=== PATIENT | female | born 1970 | race Caucasian/White ===

== ENCOUNTER 2018-06-29 11:04 | Emergency (ER) | END 2018-06-29 13:00 | disposition home or self-care (01) ==

== ENCOUNTER 2019-02-08 11:34 | Inpatient (IN) | payer MEDICAID ==
[~2019-02-08] VITALS: Ht 160 cm; Wt 72.4 kg
--- NOTE | 2019-02-08 13:00 | ERD ---
ER Documentation Chief Complaint Chief Complaint vag bleed x 3 weeks HPI Patient is a 49-year-old female with past medical history of anemia presents to the ER for concerns of vaginal bleeding intermittently for the last 3 weeks. Yann spencer states that the bleeding comes and goes. Most recent episode started 3 days ago. Patient states she uses 3-5 pads per day. Patient denies any blood clot passage. Patient denies fevers, chills, nausea, vomiting, abdominal pain. Patient does report feeling weak. Patient states she has not taken her iron supplements for 2 weeks now given that she ran out of iron supplements. Patient does not have an VERTICA ARCHITECT. ROS All systems reviewed and are negative except as per history of present illness. Medications Home Meds No Active Prescriptions or Reported Meds Allergies Allergies: Coded Allergies: No Known Allergy (Unverified , 02/08/19) PMhx/Soc Medical and Surgical Hx: pt denies Medical Hx History of Surgery: Yes (C/S) Anesthesia Reaction: No Hx Alcohol Use: No Hx Substance Use: No Hx Tobacco Use: No Smoking Status: Never smoker FmHx Family History: No diabetes Physical Exam Vitals Vital Signs Date Temp Pulse Resp B/P (MAP) Pulse Ox O2 O2 Flow FiO2 Time Delivery Rate 02/08/19 98.1 92 18 118/57 100 11:38 (77) Physical Exam GENERAL: Well-developed, well-nourished female. Appears in no acute distress. Speaking in full sentences. HEAD: Normocephalic, atraumatic. EYES: Pupils are equally reactive bilaterally. EOMs grossly intact. No conjunctival erythema. ENT: Moist mucous membranes. No uvula deviation. No kissing tonsils. NECK: Supple. No meningismus. Normal range of motion of the neck. LUNG: Clear to auscultation bilaterally. No rhonchi, wheezing, rales or coarse breath sounds. HEART: Regular rate and rhythm. No murmurs, rubs or gallops. ABDOMEN: No scars, ecchymosis or rashes noted. Soft, nontender, and n ondistended. Positive bowel sounds in all four quadrants. No rebound tenderness, no guarding. (-) McBurney's point tenderness. No CVA tenderness. EXTREMITIES: Equal pulses bilaterally. No peripheral clubbing, cyanosis or edema. No unilateral leg swelling. NEUROLOGIC: Alert and oriented. Moving all four extremities without any difficulty. Normal speech. Steady gait. SKIN: Normal color. Warm and dry. No rashes or lesions. Result Diagram: 02/08/19 1228 02/08/19 1228 Results 24 hrs Laboratory Tests Test 02/08/19 12:28 White Blood Count 5.4 10^3/ul Red Blood Count 2.62 10^6/ul Hemoglobin 5.1 g/dl Hematocrit 19.0 % Mean Corpuscular Volume 72.5 fl Mean Corpuscular Hemoglobin 19.5 pg Mean Corpuscular Hemoglobin Concent 26.8 g/dl Red Cell Distribution Width 18.9 % Platelet Count 426 10^3/UL Mean Platelet Volume 9.6 fl Immature Granulocytes % 0.600 % Neutrophils % % Segmented Neutrophils % (Manual) 69 % Band Neutrophils % (Manual) 1 % Lymphocytes % % Lymphocytes % (Manual) 18 % Reactive Lymphocytes % (Manual) 2 % Monocytes % % Monocytes % (Manual) 7 % Eosinophils % % Eosinophils % (Manual) 1 % Basophils % % Metamyelocytes % (manual) 1 % Myelocytes % (Manual) 1 % Nucleated Red Blood Cells % 0.6 /100WBC Immature Granulocytes # 0.030 10^3/ul Neutrophils # 10^3/ul Neutrophils # (Manual) 3.7 10^3/ul Band Neutrophils # 0.0 10^3/ul Lymphocytes (Manual) 0.9 10^3/ul Lymphocytes # 10^3/ul Reactive Lymphocytes # 0.1 10^3/ul Monocytes # 10^3/ul Monocytes # (Manual) 0.3 10^3/ul Eosinophils # 10^3/ul Basophils # 10^3/ul Metamyelocytes # 0.0 10^3/ul Myelocytes # 0.0 10^3/ul Nucleated Red Blood Cells # 10^3/ul White Cell Morphology Comment @See below Platelet Estimate NORMAL Polychromasia 3+ Hypochromasia 3+ Poikilocytosis 1+ Anisocytosis 3+ Microcytosis 3+ Red Cell Morphology Comment @See below Urine Color YELLOW Urine Clarity CLOUDY Urine pH 8.0 Urine Specific [place] 1.016 Urine Ketones NEGATIVE mg/dL Urine Nitrite NEGATIVE mg/dL Urine Bilirubin NEGATIVE mg/dL Urine Urobilinogen 2+ mg/dL Urine Leukocyte Esterase NEGATIVE Matt/ul Urine Microscopic RBC 5 /HPF Urine Microscopic WBC 1 /HPF Urine Amorphous Crystals FEW /HPF Urine Bacteria FEW /HPF Urine Mucus MODERATE /HPF Urine Hemoglobin 2+ mg/dL Urine Glucose NEGATIVE mg/dL Urine Total Protein NEGATIVE mg/dl Sodium Level 142 mmol/L Potassium Level 4.4 mmol/L Chloride Level 107 mmol/L Carbon Dioxide Level 25 mmol/L Anion Gap 10 Blood Urea Nitrogen 8 mg/dl Creatinine 0.56 mg/dl Est Glomerular Filtrat Rate mL/min > 60 mL/min Glucose Level 116 mg/dl Calcium Level 9.0 mg/dl Total Bilirubin 0.5 mg/dl Direct Bilirubin 0.00 mg/dl Indirect Bilirubin 0.5 mg/dl Aspartate Amino Transf (AST/SGOT) 13 IU/L Alanine Aminotransferase (ALT/SGPT) 15 IU/L Alkaline Phosphatase 55 IU/L Total Protein 7.7 g/dl Albumin 4.3 g/dl Globulin 3.40 g/dl Albumin/Globulin Ratio 1.26 Beta HCG, Quantitative < 2.4 mIU/ml Procedures/MDM ED COURSE: The patient was stable throughout ED course. I kept the patient and/or family informed of laboratory and diagnostic imaging results throughout the ED course. DIAGNOSTIC IMAGING: Read by radiologist. Patient: DIAN JOSEPH : 1970 Age: 49 Sex: F MR #: [id number] DOS: 02/08/19 1220 Ordering MD: JERI TAPIA PA-C Location: E/R Room/Bed: PROCEDURE: US Pelvis. CLINICAL INDICATION: Vaginal bleeding TECHNIQUE: Multiple sonographic images of the pelvis were obtained utilizing transabdominal and endovaginal technique. The images were reviewed on a PACS workstation. COMPARISON: None. FINDINGS: The uterus is normal in size with a normal appearance of the myometrium. The uterus measures 10.2 x 4.5 x 6.0 cm. There are multiple Nabothian cysts in the cervix, the largest measures 2.1 cm, with internal debris. The endometrial stripe is heterogeneous in appearance and has the thickness of 18 mm. The right ovary was not seen. The left ovary measures 8.5 x 5.9 x 8.4 cm. There is Doppler flow noted in the left ovary. There is a large septated cyst in the left ovary measuring 7.3 x 5.0 cm. No free fluid is present within the pelvis. RPTAT: AA IMPRESSION: Enlarged left ovary with a large septated cyst measuring 7.3 cm. Further evaluation with surgical consultation or pelvic MRI is recommended. Slightly heterogeneous and thickened endometrium measuring 18 mm. .Franklin Henderson MD, MD Date Time Electronically viewed and signed by .Franklin Henderson MD, MD on 02/08/2019 13:26 .S/ CC: JERI TAPIA PA-C [id number] PROCEDURES: None. MEDICAL DECISION MAKING: This is a 49-year-old female with past medical history of anemia presents the ER for concerns of intermittent vaginal bleeding for the last 3 weeks. Patient does report associated weakness. Vital signs were reviewed. Patient was afebrile. Patient was hemodynamically stable. Patient's hemoglobin was noted to be 5.1, hematocrit of 19. CMP showed no severe electrolyte abnormalities, acidosis, alkalosis, renal injury or liver injury. B hCG was with less than 2.4. Pelvic ultrasound showed Enlarged left ovary with a large septated cyst measuring 7.3 cm. Further evaluation with surgical consultation or pelvic MRI is recommended. Slightly heterogeneous and thickened endometrium measuring 18 mm.. I discussed case with supervising physician Dr. Lo. Patient will be transferred to ED 1 for further management and work-up. Departure Diagnosis: Primary Impression: Vaginal bleeding Additional Impressions: Severe anemia Ovarian cyst Laterality: unspecified laterality Qualified Codes: N83.209 - Unspecified ovarian cyst, unspecified side Condition: Fair JERI TAPIA PA-C February 08, 2019 13:00
--- NOTE | 2019-02-08 13:24 | QN ---
Documentation Comment Chief complaint: Vaginal bleeding. The patient was initially seen by the [facility] HPI: The patient is a 49-year-old female, presenting with acute vaginal bleeding for the last 3 weeks complains of intermittent dizziness for the last 2 weeks, better with resting. Denies fever, chills, neck pain, chest pain, dyspnea, abdominal pain, vomiting, dizzy, diarrhea. She does not smoke nor drink Past medical history: Anemia Past surgical history: Const: No acute distress. Pale Head: Atraumatic. Eyes: Normal Conjunctiva. ENT: Normal External Ears, Nose and Mouth. Neck: Full range of motion. No meningismus. Resp: Clear to auscultation bilaterally. Cardio: Regular rate and rhythm. Abd: Soft, non distended, normal bowel sounds, non tender. Skin: No petechiae or rashes. Back: No midline or flank tenderness. Ext: No cyanosis, or edema. Neur: Awake and alert. No focal deficit Psych: Normal Mood and Affect. [place] [id number] Radiology Main Line: [phone] DIAGNOSTIC IMAGING REPORT Patient: DIAN JOSEPH : 1970 Age: 49 Sex: F MR #: [id number] DOS: 02/08/19 1220 Ordering MD: JERI TAPIA PA-C Location: E/R Room/Bed: AMENDMENT: 02/08/2019 3:34:17 PM Franklin Henderson M.d Verbal to Jeri ENGLE PROCEDURE: US Pelvis. CLINICAL INDICATION: Vaginal bleeding TECHNIQUE: Multiple sonographic images of the pelvis were obtained utilizing transabdominal and endovaginal technique. The images were reviewed on a PACS workstation. COMPARISON: None. FINDINGS: The uterus is normal in size with a normal appearance of the myometrium. The uterus measures 10.2 x 4.5 x 6.0 cm. There are multiple Nabothian cysts in the cervix, the largest measures 2.1 cm, with internal debris. The endometrial stripe is heterogeneous in appearance and has the thickness of 18 mm. The right ovary was not seen. The left ovary measures 8.5 x 5.9 x 8.4 cm. There is Doppler flow noted in the left ovary. There is a large septated cyst in the left ovary measuring 7.3 x 5.0 cm. No free fluid is present within the pelvis. RPTAT: AA IMPRESSION: Enlarged left ovary with a large septated cyst measuring 7.3 cm. Further evaluation with surgical consultation or pelvic MRI is recommended. Slightly heterogeneous and thickened endometrium measuring 18 mm. .Franklin Henderson MD, MD Date Time Electronically viewed and signed by .Franklin Henderson MD, on 02/08/2019 15:3 4 .S/ CC: JERI TAPIA PA-C [id number] MEDICAL MAKING DECISION: The patient is a 49-year-old female, presenting with acute symptomatic anemia due to acute metromenorrhagia, acute left ovarian cyst. She was treated with 3 unit of packed red blood cell for acute severe anemia The differential diagnoses considered include but are not limited to dysfunctional uterine bleeding, fibroid, uterine polyps, UTI Consultation: I discussed the patient with the on-call director game Dr Choudhary at 1:50p, who was made aware of the lab, the treatment and she accepted the patient Diagnostic impression: #1 acute symptomatic anemia #2 acute metromenorrhagia #3 acute left ovarian cyst Disposition: I discussed the findings with the patient. I discussed the patient with Dr Ray at 2:15p , who was made aware of the lab, the treatment, the patient condition. The patient is admitted to [facility] Disclaimer: Inadvertent spelling and grammatical errors are likely due to EHR /dictation software use and do not reflect on the overall quality of patient care. Also, please note that the electronic time recorded on this note does not necessarily reflect the actual time of the patient encounter. ARIEL SANTIAGO MD February 08, 2019 13:24
--- NOTE | 2019-02-08 13:59 | CONS ---
Assessment/Plan Assessment/Plan Assessment/Plan (Daily) 1. Abnormal uterine bleeding 2. Severe anemia Patient is currently receiving blood transfusion under the care of the hospitalist 3. Complex left ovarian cyst measuring 7 cm 4. Thickened endometrium Tumor markers were ordered today; Ca1 25 within normal limits After patient is hemodynamically stable; she should be considered for D&C and laparoscopic ovarian cystectomy with frozen section; possible laparotomy; possible salpingo-oophorectomy Consultation Date/Type/Reason Admit Date/Time Date of Consultation: February 08, 2019 Type of Consult Gynecology Reason for Consultation 1. Abnormal uterine bleeding 2. Severe anemia 3. Complex left ovarian cyst measuring 7 cm 4. Thickened endometrium Date/Time of Note DATE: 02/08/19 TIME: 13:58 Hx of Present Illness 49-year-old 4 para 4 presents with chief complaint of heavy vaginal bleeding for the last 3 weeks. She denies of passing any blood clots. She denies any pelvic pain Denies of any contraception use. Patient denies any history of fibroids Patient's past obstetrical history significant for x2 and x2 Constitutional: no complaints, improved Eyes: no complaints ENT: no complaints Respiratory: no complaints Cardiovascular: no complaints Gastrointestinal: no complaints Genitourinary: no complaints, other (Abnormal uterine bleeding) Musculoskeletal: no complaints Skin: no complaints Neurologic: no complaints Endocrine: no complaints Lymphatic: no complaints Psychological: no complaints, nl mood/affect Immunologic: no complaints Past Medical History Home Meds No Active Prescriptions or Reported Meds Allergies: Coded Allergies: No Known Allergy (Unverified , 02/08/19) Social History Smoking Status: Never smoker Exam/Review of Systems Exam Vitals Vital Signs Date Temp Pulse Resp B/P (MAP) Pulse Ox O2 O2 Flow FiO2 Time Delivery Rate 02/08/19 98.1 92 18 118/57 100 11:38 (77) Constitutional: alert, oriented, well developed Results Result Diagram: 02/08/19 1228 02/08/19 1228 Results 24hrs Laboratory Tests Test 02/08/19 12:28 White Blood Count 5.4 Red Blood Count 2.62 L Hemoglobin 5.1 *L Hematocrit 19.0 L Mean Corpuscular Volume 72.5 L Mean Corpuscular Hemoglobin 19.5 L Mean Corpuscular Hemoglobin Concent 26.8 L Red Cell Distribution Width 18.9 H Platelet Count 426 H Mean Platelet Volume 9.6 Immature Granulocytes % 0.600 H Neutrophils % Segmented Neutrophils % (Manual) 69 Band Neutrophils % (Manual) 1 Lymphocytes % Lymphocytes % (Manual) 18 Reactive Lymphocytes % (Manual) 2 H Monocytes % Monocytes % (Manual) 7 Eosinophils % Eosinophils % (Manual) 1 Basophils % Metamyelocytes % (manual) 1 H Myelocytes % (Manual) 1 H Nucleated Red Blood Cells % 0.6 H Immature Granulocytes # 0.030 Neutrophils # Neutrophils # (Manual) 3.7 Band Neutrophils # 0.0 Lymphocytes (Manual) 0.9 Lymphocytes # Reactive Lymphocytes # 0.1 H Monocytes # Monocytes # (Manual) 0.3 Eosinophils # Basophils # Metamyelocytes # 0.0 Myelocytes # 0.0 Nucleated Red Blood Cells # White Cell Morphology Comment @See below Platelet Estimate NORMAL Polychromasia 3+ Hypochromasia 3+ Poikilocytosis 1+ Anisocytosis 3+ Microcytosis 3+ Red Cell Morphology Comment @See below Urine Color YELLOW Urine Clarity CLOUDY A Urine pH 8.0 Urine Specific [place] 1.016 Urine Ketones NEGATIVE Urine Nitrite NEGATIVE Urine Bilirubin NEGATIVE Urine Urobilinogen 2+ H Urine Leukocyte Esterase NEGATIVE Urine Microscopic RBC 5 Urine Microscopic WBC 1 Urine Amorphous Crystals FEW A Urine Bacteria FEW A Urine Mucus MODERATE Urine Hemoglobin 2+ H Urine Glucose NEGATIVE Urine Total Protein NEGATIVE Sodium Level 142 Potassium Level 4.4 Chloride Level 107 Carbon Dioxide Level 25 Anion Gap 10 Blood Urea Nitrogen 8 Creatinine 0.56 Est Glomerular Filtrat Rate mL/min > 60 Glucose Level 116 Calcium Level 9.0 Total Bilirubin 0.5 Direct Bilirubin 0.00 Indirect Bilirubin 0.5 Aspartate Amino Transf (AST/SGOT) 13 L Alanine Aminotransferase (ALT/SGPT) 15 Alkaline Phosphatase 55 Total Protein 7.7 Albumin 4.3 Globulin 3.40 H Albumin/Globulin Ratio 1.26 Beta HCG, Quantitative < 2.4 Imaging Imaging PROCEDURE: US Pelvis. CLINICAL INDICATION: Vaginal bleeding TECHNIQUE: Multiple sonographic images of the pelvis were obtained utilizing transabdominal and endovaginal technique. The images were reviewed on a PACS workstation. COMPARISON: None. FINDINGS: The uterus is normal in size with a normal appearance of the myometrium. The uterus measures 10.2 x 4.5 x 6.0 cm. There are multiple Nabothian cysts in the cervix, the largest measures 2.1 cm, with internal debris. The endometrial stripe is heterogeneous in appearance and has the thickness of 18 mm. The right ovary was not seen. The left ovary measures 8.5 x 5.9 x 8.4 cm. There is Doppler flow noted in the left ovary. There is a large septated cyst in the left ovary measuring 7.3 x 5.0 cm. No free fluid is present within the pelvis. RPTAT: AA IMPRESSION: Enlarged left ovary with a large septated cyst measuring 7.3 cm. Further evaluation with surgical consultation or pelvic MRI is recommended. Slightly heterogeneous and thickened endometrium measuring 18 mm. .Franklin Henderson MD, MD Date Time Electronically viewed and signed by .Franklin Henderson MD, MD on 02/08/2019 13:26 .S/ CC: JERI TAPIA PA-C [id number] FRANCK CROFT MD February 08, 2019 13:59
[2019-02-08] MEDS ORDERED: ALBUTEROL/IPRATROPIUM (NEB) 3 ML AMP HHN PRN (15:00)
[2019-02-08] MEDS ORDERED: MAGNESIUM HYDROXIDE 30ML CUP PO PRN (15:00)
[2019-02-08] MEDS ORDERED: NACL 0.9% 3 ML SYG IV SCH (15:00)
[2019-02-08] MEDS ORDERED: hydrALAzine 20 MG INJ IV PRN (15:00)
[2019-02-08] MEDS ORDERED: NITROGLYCERIN (SL) 0.4 MG TAB SL PRN (15:00)
[2019-02-08] MEDS ORDERED: DOCUSATE SODIUM 100 MG CAP PO PRN (15:00)
[2019-02-08] MEDS ORDERED: morphine 2 MG INJ IV PRN (15:00)
[2019-02-08] MEDS ORDERED: LORAZEPAM 2 MG INJ IV PRN (15:00)
[2019-02-08] MEDS: ACETAMINOPHEN 325 MG TAB PO PRN (15:39)
[2019-02-08 16:06] VITALS: PULSE 94
--- NOTE | 2019-02-08 16:16 | HP ---
Date/Time of Note Date/Time of Note DATE: 02/08/19 TIME: 16:16 Assessment/Plan VTE Prophylaxis SCD applied (from Nsg): Yes Pharmacological prophylaxis: NA/contraindicated Pharm contraindication: bleeding Lines/Catheters IV Catheter Type (from Nrsg): Peripheral IV Assessment/Plan Hospital Course Assessment and plan: 49-year-old female prior history of anemia, presenting with abnormal uterine bleeding x3 weeks, with hemoglobin 5.1 and left ovarian cyst. #Abnormal uterine bleeding: Again hemoglobin 5.1 as well -Continue blood saturation, follow-up post transfusion CBC, continue IV fluids -Also will check TSH, A1c, lipid panel -Appreciate USER INTERFACE DESIGNER consult, follow the further recommendations regarding any further imaging studies and/or labs including tumor markers, and for possible endometrial biopsy/D and C #Left ovarian cyst: Found on imaging studies today -Monitor, per USER INTERFACE DESIGNER preliminary recommendations may consider laparoscopy in the next few days for further evaluation Result Diagram: 02/08/19 1228 02/08/19 1228 Results 24hrs Laboratory Tests Test 02/08/19 12:27 02/08/19 12:28 Carcinoembryonic Antigen 0.4 CA 125 Antigen 9.1 White Blood Count 5.4 Red Blood Count 2.62 L Hemoglobin 5.1 *L Hematocrit 19.0 L Mean Corpuscular Volume 72.5 L Mean Corpuscular Hemoglobin 19.5 L Mean Corpuscular Hemoglobin Concent 26.8 L Red Cell Distribution Width 18.9 H Platelet Count 426 H Mean Platelet Volume 9.6 Immature Granulocytes % 0.600 H Neutrophils % Segmented Neutrophils % (Manual) 69 Band Neutrophils % (Manual) 1 Lymphocytes % Lymphocytes % (Manual) 18 Reactive Lymphocytes % (Manual) 2 H Monocytes % Monocytes % (Manual) 7 Eosinophils % Eosinophils % (Manual) 1 Basophils % Metamyelocytes % (manual) 1 H Myelocytes % (Manual) 1 H Nucleated Red Blood Cells % 0.6 H Immature Granulocytes # 0.030 Neutrophils # Neutrophils # (Manual) 3.7 Band Neutrophils # 0.0 Lymphocytes (Manual) 0.9 Lymphocytes # Reactive Lymphocytes # 0.1 H Monocytes # Monocytes # (Manual) 0.3 Eosinophils # Basophils # Metamyelocytes # 0.0 Myelocytes # 0.0 Nucleated Red Blood Cells # White Cell Morphology Comment @See below Platelet Estimate NORMAL Polychromasia 3+ Hypochromasia 3+ Poikilocytosis 1+ Anisocytosis 3+ Microcytosis 3+ Red Cell Morphology Comment @See below Prothrombin Time 13.0 Prothrombin Time Ratio 1.0 INR International Normalized Ratio 0.97 Activated Partial Thromboplast Time 32.5 Urine Color YELLOW Urine Clarity CLOUDY A Urine pH 8.0 Urine Specific [place] 1.016 Urine Ketones NEGATIVE Urine Nitrite NEGATIVE Urine Bilirubin NEGATIVE Urine Urobilinogen 2+ H Urine Leukocyte Esterase NEGATIVE Urine Microscopic RBC 5 Urine Microscopic WBC 1 Urine Amorphous Crystals FEW A Urine Bacteria FEW A Urine Mucus MODERATE Urine Hemoglobin 2+ H Urine Glucose NEGATIVE Urine Total Protein NEGATIVE Sodium Level 142 Potassium Level 4.4 Chloride Level 107 Carbon Dioxide Level 25 Anion Gap 10 Blood Urea Nitrogen 8 Creatinine 0.56 Est Glomerular Filtrat Rate mL/min > 60 Glucose Level 116 Calcium Level 9.0 Total Bilirubin 0.5 Direct Bilirubin 0.00 Indirect Bilirubin 0.5 Aspartate Amino Transf (AST/SGOT) 13 L Alanine Aminotransferase (ALT/SGPT) 15 Alkaline Phosphatase 55 Total Protein 7.7 Albumin 4.3 Globulin 3.40 H Albumin/Globulin Ratio 1.26 Free Thyroxine 1.00 Beta HCG, Quantitative < 2.4 HPI/ROS Admit Date/Time Admit Date/Time Hx of Present Illness 49-year-old female with past medical history of anemia who presents to the ER for concerns of vaginal bleeding. Patient states this has been going on intermittently for the last 3 weeks. No apparent prior history of this. Patient states that the bleeding comes and goes, and states she uses 3-5 pads per day. Patient denies any blood clot passage. Also denies fevers, chills, nausea, vomiting, abdominal pain. Patient does report feeling weak. Patient states she has not taken her iron supplements for 2 weeks now given that she ran out of iron supplements. Patient does not have an USER INTERFACE DESIGNER. When she came in today she was found hemoglobin 5.1 and PRBC transfusion has been ordered for the patient which is presently being given now. Patient was also seen by the USER INTERFACE DESIGNER team because of the imaging studies also showing today a left ovarian cyst 7.3 centimeters, and they ordered some tumor markers which are still pending. PMH/Family/Social Past Medical History Medications Current Medications IV Flush (NS 3 ml) 3 ml PER PROTOCOL IV ; Start 02/08/19 at 15:00 Ondansetron HCl (Zofran Inj) 4 mg Q6H PRN IV NAUSEA/VOMITING; Start 02/08/19 at 15:00 Acetaminophen (Tylenol Tab) 650 mg Q6H PRN PO .PAIN 1-3 OR TEMP Last administered on 02/08/19at 15:39; Admin Dose 650 MG; Start 02/08/19 at 15:00 Acetaminophen/ Hydrocodone Bitart ([place] (5/325)) 1 tab Q6H PRN PO .MOD PAIN 4- 6; Start 02/08/19 at 15:00 Morphine Sulfate (morphine) 2 mg Q4H PRN IV .SEVERE PAIN 7-10; Start 02/08/19 at 15:00 Docusate Sodium (Colace) 100 mg Q12H PRN PO .CONSTIPATION; Start 02/08/19 at 15:00 Magnesium Hydroxide (Milk Of Mag) 30 ml DAILY PRN PO .CONSTIPATION; Start 02/08/19 at 15:00 Lorazepam (Ativan) 0.5 mg Q6H PRN IV ANXIETY; Start 02/08/19 at 15:00 Sodium Chloride 1,000 ml @ 100 mls/hr Q10H IV ; Start 02/08/19 at 14:56 Albuterol/ Ipratropium (Duoneb) 3 ml Q4H RESP THERAPY PRN HHN SHORTNESS OF BREATH; Start 02/08/19 at 15:00 Hydralazine HCl (Apresoline) 10 mg Q6H PRN IV ELEVATED BLOOD PRESSURE; Start 02/08/19 at 15:00 Nitroglycerin (Nitroglycerin (Sl Tab) 0.4 Mg) 1 tab Q5M PRN SL ANGINA; Start at 15:00 Coded Allergies: No Known Allergy (Unverified , 02/08/19) Past Surgical History Past Surgical Hx: other ( x2) Social History Alcohol Use: none Smoking Status: Never smoker Drug Use: none Exam/Review of Systems Vital Signs Vitals Vital Signs Date Temp Pulse Resp B/P (MAP) Pulse Ox O2 O2 Flow FiO2 Time Delivery Rate 02/08/19 94 16:06 02/08/19 99.1 15:39 02/08/19 17 101/54 100 Room Air 15:30 (70) Exam Exam Gen: Lying in bed, answering questions Head: Atraumatic Eyes: Normal Conjunctiva ENT: Normal External Ears, Nose and Mouth. Neck: Supple Resp: Clear to auscultation bilaterally Cardio: Regular rate and rhythm, no murmurs Abd: Soft, non tender, non distended. Normal bowel sounds Ext: No lower extremity edema bilaterally Neuro: No focal deficits FARIHA AGUIAR February 08, 2019 16:16
[2019-02-08 16:40] VITALS: Ht 160 cm; Wt 72.4 kg
[2019-02-08] MEDS: SOD CHLORIDE 0.9% 1,000 ML IV SCH ×2 (18:59→23:39)
[2019-02-08 19:48] VITALS: BP 104/51; PULSE 81; RESP 18
[2019-02-08 20:00] VITALS: PULSE 86
[2019-02-09] VITALS (19 sets, daily range): BP systolic 95–122; BP diastolic 44–67; PULSE 60–85; RESP 11–19
--- NOTE | 2019-02-09 10:40 | PREAC ---
Date/Time of Note Date/Time of Note DATE: 02/09/19 TIME: 10:37 Anesthesia Eval and Record Evaluation Time Pre-Procedure Interview DATE: 02/09/19 TIME: 10:37 Age 49 Sex female NPO: 8 hrs Preoperative diagnosis 3 weeks vaginal bleeding left ovarian cyst Planned procedure laparoscopy cystectomy, hysterescopy Past Medical History Past Medical History: Includes Heme: Anemia Surgery & Anesthesia Issues No known issue Meds Anticoagulation: No Beta Marko within 24 hr: No Reason Beta Marko not given: Pt. not on B-Marko No Active Prescriptions or Reported Meds Current Medications IV Flush (NS 3 ml) 3 ml PER PROTOCOL IV ; Start 02/08/19 at 15:00 Ondansetron HCl (Zofran Inj) 4 mg Q6H PRN IV NAUSEA/VOMITING; Start 02/08/19 at 15:00 Acetaminophen (Tylenol Tab) 650 mg Q6H PRN PO .PAIN 1-3 OR TEMP Last administered on 02/08/19at 15:39; Admin Dose 650 MG; Start 02/08/19 at 15:00 Acetaminophen/ Hydrocodone Bitart ([place] (5/325)) 1 tab Q6H PRN PO .MOD PAIN 4- 6; Start 02/08/19 at 15:00 Morphine Sulfate (morphine) 2 mg Q4H PRN IV .SEVERE PAIN 7-10; Start 02/08/19 at 15:00 Docusate Sodium (Colace) 100 mg Q12H PRN PO .CONSTIPATION; Start 02/08/19 at 15:00 Magnesium Hydroxide (Milk Of Mag) 30 ml DAILY PRN PO .CONSTIPATION; Start 02/08/19 at 15:00 Lorazepam (Ativan) 0.5 mg Q6H PRN IV ANXIETY; Start 02/08/19 at 15:00 Sodium Chloride 1,000 ml @ 100 mls/hr Q10H IV Last administered on 02/08/19at 23:39; Admin Dose 100 MLS/HR; Start 02/08/19 at 14:56 Albuterol/ Ipratropium (Duoneb) 3 ml Q4H RESP THERAPY PRN HHN SHORTNESS OF BREATH; Start 02/08/19 at 15:00 Hydralazine HCl (Apresoline) 10 mg Q6H PRN IV ELEVATED BLOOD PRESSURE; Start 02/08/19 at 15:00 Nitroglycerin (Nitroglycerin (Sl Tab) 0.4 Mg) 1 tab Q5M PRN SL ANGINA; Start 02/08/19 at 15:00 Meds reviewed: Yes Allergies Coded Allergies: No Known Allergy (Unverified , 02/08/19) Allergies Reviewed: Yes Labs/Studies Labs Reviewed: Reviewed by anesthesiologist Result Diagram: 02/09/19 0547 02/09/19 0547 Laboratory Tests 02/09/19 05:47 Blood Bank Test 02/08/19 13:21 Antibody Screen NEGATIVE Blood Product Summary Counts Blood Type O POSITIVE Crossmatch Red Blood Cells test: Negative Studies: ECG (n/a), CXR (n/a) Pre-procedure Exam Last vitals Vital Signs Date Temp Pulse Resp B/P (MAP) Pulse Ox O2 O2 Flow FiO2 Time Delivery Rate 02/09/19 79 08:00 02/09/19 99.0 17 107/57 99 07:21 (74) 02/08/19 Room Air 15:30 Airway: Adequate mouth opening Mallampati: Mallampati I Teeth: Normal Lung: Normal Heart: Normal ASA Physical Status ASA physical status: 1 Emergency: None Planned Anesthetic General/MAC: ETT Neuraxial: Spinal Nerve block: TAP (bilateral) Planned Pain Management Sub-arachniod narcotics, Single shot nerve block Pre-operative Attestations Prior to commencing anesthesia and surgery, the patient was re-evaluated, there was verification of: *The patient's identity *The results of appropriate recent lab work and preoperative vital signs *The above evaluation not changing prior to induction *Anesthetic plan, risk benefits, alternative and complications discussed with patient/family; questions answered; patient/family understands, accepts and wishes to proceed. NINA MARVIN MD February 09, 2019 10:40
[2019-02-09] MEDS ORDERED: CEFAZOLIN 1 GM INJ ONE (10:50)
[2019-02-09] MEDS ORDERED: KETOROLAC 30 MG INJ ONE (10:50)
[2019-02-09] MEDS ORDERED: PROPOFOL 20 ML ONE (10:50)
[2019-02-09] MEDS ORDERED: ONDANSETRON 4 MG INJ ONE (10:50)
[2019-02-09] MEDS ORDERED: METOCLOPRAMIDE 10 MG INJ ONE (10:50)
[2019-02-09] MEDS ORDERED: ROCURONIUM 50 MG INJ ONE (10:50)
[2019-02-09] MEDS ORDERED: MIDAZOLAM 1 MG/ML 2 ML INJ ONE (10:51)
[2019-02-09] MEDS ORDERED: morphine SULFATE/PF (10 MG/10 ML) INJ ONE (10:52)
[2019-02-09] MEDS: SOD CHLORIDE 0.9% 1,000 ML IV SCH ×2 (10:55→17:42)
[2019-02-09] MEDS ORDERED: MEPERIDINE 25 MG INJ IV PRN (11:00)
[2019-02-09] MEDS ORDERED: ONDANSETRON 4 MG INJ IV PRN (11:00)
[2019-02-09] MEDS ORDERED: DIPHENHYDRAMINE 50 MG INJ IV PRN (11:00)
[2019-02-09] MEDS ORDERED: FENTAnyl 50 MCG/ML VIAL IV PRN ×3 (11:00)
[2019-02-09] MEDS ORDERED: KETOROLAC 30 MG INJ IV PRN (11:00)
[2019-02-09] MEDS ORDERED: HYDROmorphONE 1 MG/5 ML IV SYRINGE IV PRN ×3 (11:00)
[2019-02-09] MEDS ORDERED: ROPIVACAINE 0.5 % 30 ML VIAL ONE (12:27)
[2019-02-09] MEDS ORDERED: NEOSTIGMINE 3 MG/3 ML SYRINGE ONE (12:41)
[2019-02-09] MEDS ORDERED: GLYCOPYRROLATE 0.4 MG INJ ONE (12:41)
--- NOTE | 2019-02-09 13:02 | OPPN ---
Date/Time of Note Date/Time of Note DATE: 02/09/19 TIME: 12:57 Operative Report Preoperative Diagnosis Severe Anemia Menorrhagia Thickened endometrium, Left ovarian cyst Postoperative Diagnosis same Operation/Procedure Performed D&C&suction and endometrial ablation Operative laparoscopy Left ovarian cystectomy Surgeon see signature line business office assistant OR Tech Anesthesia: general Estimated blood loss: minimal Transfusion Required none Specimen left ovarian cyst .EMT ECC Grafts/Implants none Complications none CODY MAN M.D. February 09, 2019 13:02
--- NOTE | 2019-02-09 13:04 | QN ---
Documentation Comment D&C&Hysteroscopy and Endometrial Ablation and Operative laparoscopy and left ovarian cystectomy She is cleared from Casting Operator Helper team and needs a follow up postop appointment with her Casting Operator Helper CODY MAN M.D. February 09, 2019 13:04
[2019-02-09] MEDS ORDERED: OXYCODONE/ACETAMINOPHEN (5/325) TAB PO PRN (13:30)
--- NOTE | 2019-02-09 13:44 | PN ---
Date/Time of Note Date/Time of Note DATE: 02/09/19 TIME: 13:41 Assessment/Plan VTE Prophylaxis Risk score (from Ns)>0 risk: 3 SCD applied (from Ns): Yes Pharmacological prophylaxis: NA/contraindicated Pharm contraindication: bleeding Lines/Catheters IV Catheter Type (from Nrs): Peripheral IV Urinary Cath still in place: No Assessment/Plan Hospital Course S: Patient off the floor now undergoing RADIUS CORNER MACHINE OPERATOR procedure, likely D+ C and possible ovarian cystectomy. Patient received 3 units PRBC transfusion since yesterday, no acute events overnight. O: VS - see below PE: -Unable to be performed presently as patient is off the floor now at surgical procedure Assessment and plan: 49-year-old female prior history of anemia, presenting with abnormal uterine bleeding x3 weeks, with hemoglobin 5.1 and left ovarian cyst. #Abnormal uterine bleeding: Again hemoglobin 5.1 on admission, after blood transfusion given yesterday, now up to 9.4 today. Scant vaginal bleeding overnight. Again seen by RADIUS CORNER MACHINE OPERATOR team and presently undergoing likely D&C procedure along with ovarian cystectomy today. -Follow-up postop recommendations, continue IV fluids -Follow-up final results of TSH, A1c, lipid panel #Left ovarian cyst: Found on imaging studies on admission -Monitor, again per RADIUS CORNER MACHINE OPERATOR preliminary recommendations patient at surgical procedure now for further investigation/treatment Result Diagram: 02/09/19 0547 02/09/19 0547 Results 24hrs Laboratory Tests Test 02/09/19 05:47 White Blood Count 6.5 # Red Blood Count 4.00 #L Hemoglobin 9.4 #L Hematocrit 31.0 #L Mean Corpuscular Volume 77.5 L Mean Corpuscular Hemoglobin 23.5 #L Mean Corpuscular Hemoglobin Concent 30.3 L Red Cell Distribution Width 19.2 H Platelet Count 425 H Mean Platelet Volume 10.0 Immature Granulocytes % 0.500 H Neutrophils % 61.2 Lymphocytes % 28.9 Monocytes % 7.2 Eosinophils % 1.1 Basophils % 1.1 Nucleated Red Blood Cells % 0.5 H Immature Granulocytes # 0.030 Neutrophils # 4.0 Lymphocytes # 1.9 Monocytes # 0.5 Eosinophils # 0.1 Basophils # 0.1 Nucleated Red Blood Cells # 0.0 Sodium Level 140 Potassium Level 3.8 Chloride Level 109 Carbon Dioxide Level 22 Anion Gap 9 Blood Urea Nitrogen 8 Creatinine 0.62 Est Glomerular Filtrat Rate mL/min > 60 Glucose Level 96 Hemoglobin A1c 5.3 Calcium Level 8.8 Phosphorus Level 3.5 Magnesium Level 2.3 Triglycerides Level 91 Cholesterol Level 168 LDL Cholesterol, Calculated 88 HDL Cholesterol 62 Cholesterol/HDL Ratio 2.7 Thyroid Stimulating Hormone (TSH) 3.700 Exam/Review of Systems Exam Vitals Vital Signs Date Temp Pulse Resp B/P (MAP) Pulse Ox O2 O2 Flow FiO2 Time Delivery Rate 02/09/19 98.1 13:08 02/09/19 80 14 106/51 100 Mask 8.0 13:04 (69) Intake and Output 02/08/19 02/08/19 02/09/19 1515:00 23:00 07:00 IntakeIntake Total 350 ml 1150 ml BalanceBalance 350 ml 1150 ml Results Results 24hrs Laboratory Tests Test 02/09/19 05:47 White Blood Count 6.5 # Red Blood Count 4.00 #L Hemoglobin 9.4 #L Hematocrit 31.0 #L Mean Corpuscular Volume 77.5 L Mean Corpuscular Hemoglobin 23.5 #L Mean Corpuscular Hemoglobin Concent 30.3 L Red Cell Distribution Width 19.2 H Platelet Count 425 H Mean Platelet Volume 10.0 Immature Granulocytes % 0.500 H Neutrophils % 61.2 Lymphocytes % 28.9 Monocytes % 7.2 Eosinophils % 1.1 Basophils % 1.1 Nucleated Red Blood Cells % 0.5 H Immature Granulocytes # 0.030 Neutrophils # 4.0 Lymphocytes # 1.9 Monocytes # 0.5 Eosinophils # 0.1 Basophils # 0.1 Nucleated Red Blood Cells # 0.0 Sodium Level 140 Potassium Level 3.8 Chloride Level 109 Carbon Dioxide Level 22 Anion Gap 9 Blood Urea Nitrogen 8 Creatinine 0.62 Est Glomerular Filtrat Rate mL/min > 60 Glucose Level 96 Hemoglobin A1c 5.3 Calcium Level 8.8 Phosphorus Level 3.5 Magnesium Level 2.3 Triglycerides Level 91 Cholesterol Level 168 LDL Cholesterol, Calculated 88 HDL Cholesterol 62 Cholesterol/HDL Ratio 2.7 Thyroid Stimulating Hormone (TSH) 3.700 Medications Medication Current Medications IV Flush (NS 3 ml) 3 ml PER PROTOCOL IV ; Start 02/08/19 at 15:00 Ondansetron HCl (Zofran Inj) 4 mg Q6H PRN IV NAUSEA/VOMITING; Start 02/08/19 at 15:00 Acetaminophen (Tylenol Tab) 650 mg Q6H PRN PO .PAIN 1-3 OR TEMP Last administered on 02/08/19at 15:39; Admin Dose 650 MG; Start 02/08/19 at 15:00 Acetaminophen/ Hydrocodone Bitart ([place] (5/325)) 1 tab Q6H PRN PO .MOD PAIN 4- 6; Start 02/08/19 at 15:00 Morphine Sulfate (morphine) 2 mg Q4H PRN IV .SEVERE PAIN 7-10; Start 02/08/19 at 15:00 Docusate Sodium (Colace) 100 mg Q12H PRN PO .CONSTIPATION; Start 02/08/19 at 15:00 Magnesium Hydroxide (Milk Of Mag) 30 ml DAILY PRN PO .CONSTIPATION; Start 02/08/19 at 15:00 Lorazepam (Ativan) 0.5 mg Q6H PRN IV ANXIETY; Start 02/08/19 at 15:00 Sodium Chloride 1,000 ml @ 100 mls/hr Q10H IV Last administered on 02/08/19at 23:39; Admin Dose 100 MLS/HR; Start 02/08/19 at 14:56 Albuterol/ Ipratropium (Duoneb) 3 ml Q4H RESP THERAPY PRN HHN SHORTNESS OF BREATH; Start 02/08/19 at 15:00 Hydralazine HCl (Apresoline) 10 mg Q6H PRN IV ELEVATED BLOOD PRESSURE; Start 02/08/19 at 15:00 Nitroglycerin (Nitroglycerin (Sl Tab) 0.4 Mg) 1 tab Q5M PRN SL ANGINA; Start 02/08/19 at 15:00 Hydromorphone HCl (Dilaudid) 0.2 mg PACU PRN IV MILD PAIN 1-3; Start 02/09/19 at 11:00; Stop 02/09/19 at 17:00 Hydromorphone HCl (Dilaudid) 0.4 mg PACU PRN IV MOD PAIN 4-6 Last administered on 02/09/19at 13:33; Admin Dose 0.4 MG; Start 02/09/19 at 11:00; Stop 02/09/19 at 17:00 Hydromorphone HCl (Dilaudid) 0.6 mg PACU PRN IV SEVERE PAIN 7-10 Last administered on 02/09/19at 13:18; Admin Dose 0.6 MG; Start 02/09/19 at 11:00; Stop 02/09/19 at 17:00 Fentanyl (Sublimaze) 25 mcg PACU ORDER PRN IV MILD PAIN 1-3; Start 02/09/19 at 11:00; Stop 02/09/19 at 17:00 Fentanyl (Sublimaze) 50 mcg PACU ORDER PRN IV MOD PAIN 4-6; Start 02/09/19 at 11:00; Stop 02/09/19 at 17:00 Fentanyl (Sublimaze) 75 mcg PACU ORDER PRN IV SEVERE PAIN 7-10; Start 02/09/19 at 11:00; Stop 02/09/19 at 17:00 Ketorolac Tromethamine (Toradol) 30 mg PACU ORDER PRN IV FOR PAIN AFTER IV NARCOTIC MED; Start 02/09/19 at 11:00; Stop 02/09/19 at 17:00 Ondansetron HCl (Zofran Inj) 4 mg PACU ORDER PRN IV NAUSEA/VOMITING Last administered on 02/09/19at 13:18; Admin Dose 4 MG; Start 02/09/19 at 11:00; Stop 02/09/19 at 17:00 Meperidine HCl (Demerol) 25 mg PACU ORDER PRN IV .RIGORS; Start 02/09/19 at 11:00; Stop 02/09/19 at 17:00 Diphenhydramine HCl (Benadryl) 25 mg PACU ORDER PRN IV .PRURITUS; Start 02/09/19 at 11:00; Stop 02/09/19 at 17:00 Oxycodone/ Acetaminophen (Percocet (5/ 325)) 2 tab Q4H PRN PO MODERATE PAIN LEVEL 4-6; Start 02/09/19 at 13:30 FARIHA AGUIAR February 09, 2019 13:44
--- NOTE | 2019-02-09 15:00 | OPR ---
DATE OF OPERATION: 02/09/2019 PREOPERATIVE DIAGNOSES: 1. Severe anemia. 2. Menorrhagia. 3. Left ovarian cyst. POSTOPERATIVE DIAGNOSES: 1. Severe anemia. 2. Menorrhagia. 3. Left ovarian cyst. PROCEDURES: Dilation and curettage, hysteroscopy, endometrial ablation, operative laparoscopy, left ovarian cystectomy. ATTENDING SURGEON: Aleksandar Price MD ANESTHESIOLOGIST: Deyanira Oconnell MD TYPE OF ANESTHESIA: General. COMPLICATIONS: None. TECHNIQUE: The patient was taken to the operating room where general anesthesia was found to be adeq uate. The patient was placed in dorsal lithotomy position after prep and drape. Weighted speculum w as placed inside the vaginal vault. Anterior lip of the cervix was grasped by single-tooth tenaculum . Endocervical curet was done. Tissue was sent for frozen. Pathologist read the specimen as benign . The hydrothermal Hi-Midia endometrial ablation device was inserted. The endometrial lini ng was ablated. The procedure was done successfully. Then instruments were removed and HUMI was ins erted inside the uterine cavity and fixed in place. Then, attention was turned to abdominal field. Then, 1 cm incision was made above the umbilicus. First trocar was inserted under direct visualizati on of the camera. Intraabdominal cavity was filled up using 4 liters of CO2. A large 6 x 7 cm left ovarian simple cyst was noticed. Ovarian cyst was enucleated and accidentally, it was ruptured. Dylon ar fluid was instilled into the abdominal field that was suctioned. Ovarian cystectomy was completed . Specimen was removed with Endobag. Copious irrigation of abdominal and pelvic cavity was done. S econd trocar that was 12 cm trocar was removed under direct visualization of the camera. Gas was rem issa. Fascia was closed with 2-0 Vicryl sutures. Skin was closed using 2-0 sutures. The trocars we re removed under direct visualization of the camera. Right side incision umbilical incision was clos ed using 3-0 Monocryl sutures. Dermabond was placed on top of all 3 incisions. HUMI was removed. H emostasis was achieved. The patient tolerated the procedure well and was transferred to [facility] in stable condition. There was no complication regarding this surgery. Dictated By: ALEKSANDAR DOBSON/NTS Conf#: [id number] [facility]#: [id number] CC: ELSI KIRKPATRICK MD; AFRIHA AGUIAR; FRANCK CROFT MD;*EndCC*
--- NOTE | 2019-02-09 15:07 | PREOPHP ---
DATE OF ADMISSION: 02/08/2019 HISTORY OF PRESENT ILLNESS: This is a 49-year-old 4, para 4, admitted to the emergency room with chief complaint of heavy vaginal bleeding, menorrhagia, ____ was noted by the ultrasound. PAST MEDICAL HISTORY: Denies. PAST SURGICAL HISTORY: Two previous C-sections. ALLERGIES: NKDA. PHYSICAL EXAMINATION: VITAL SIGNS: Stable. GENERAL: Normal. ABDOMEN: Not tender, not distended. GENITAL: She had ____ in the vaginal vault. ASSESSMENT AND PLAN: A 49-year-old 4, para 4 with menorrhagia, thickened endometrium and lef t ovarian cyst, was consented for D and C and hysteroscopy, endometrial ablation, operative laparosco py, left ovarian cystectomy, possible oophorectomy, possible laparotomy. Risks and benefits were dis cussed with the patient. Consent was signed and the patient was taken to the operating room. Dictated By: CODY MAN MD RG/NTS Conf#: [id number] DID#: [id number] CC: ELSI KIRKPATRICK MD; FARIHA AGUIAR; FRANCK CROFT MD;*EndCC*
[2019-02-09] MEDS: ACETAMINOPHEN 325 MG TAB PO PRN (22:40)
[2019-02-10 01:55] VITALS: BP 100/50; PULSE 70; RESP 18
[2019-02-10] MEDS: SOD CHLORIDE 0.9% 1,000 ML IV SCH (03:56)
[2019-02-10 07:32] VITALS: BP 106/51; PULSE 63; RESP 16
--- NOTE | 2019-02-10 08:05 | PAC ---
Date/Time of Note Date/Time of Note DATE: 02/10/19 TIME: 08:05 Post-Anesthesia Notes Post-Anesthesia Note Last documented vital signs Vital Signs Date Temp Pulse Resp B/P (MAP) Pulse Ox O2 O2 Flow FiO2 Time Delivery Rate 02/10/19 99.2 63 16 106/51 100 Room Air 07:32 (69) 02/09/19 8.0 13:18 Activity: WNL Respiratory function: WNL Cardiovascular function: WNL Mental status: Baseline Pain reasonably controlled: Yes Hydration appropriate: Yes Nausea/Vomiting absent: No NINA MARVIN MD February 10, 2019 08:05
--- NOTE | 2019-02-10 08:07 | OPPN ---
Date/Time of Note Date/Time of Note DATE: 02/10/19 TIME: 08:05 Anesthesia Follow up Anesthesia Follow up Last documented vital signs Vital Signs Date Temp Pulse Resp B/P (MAP) Pulse Ox O2 O2 Flow FiO2 Time Delivery Rate 02/10/19 99.2 63 16 106/51 100 Room Air 07:32 (69) 02/09/19 8.0 13:18 Respiratory function: WNL Cardiovascular function: WNL Comments A 49 year female s/p GA , spinal with duramorph for post op pain POD #1 is doing fine. No pain, itching, headache, N/V, neural deficit. care per surgery team NINA MARVIN MD February 10, 2019 08:07
[2019-02-10] MEDS: ONDANSETRON 4 MG INJ IV PRN (11:42)
[2019-02-10] MEDS: ACETAMINOPHEN 325 MG TAB PO PRN (11:51)
--- NOTE | 2019-02-10 12:20 | PN ---
Date/Time of Note Date/Time of Note DATE: 02/10/19 TIME: 12:17 Assessment/Plan VTE Prophylaxis Risk score (from Nsg)>0 risk: 1 SCD applied (from Nsg): Yes Pharmacological prophylaxis: NA/contraindicated Pharm contraindication: bleeding Lines/Catheters IV Catheter Type (from Nrsg): Peripheral IV Urinary Cath still in place: No Assessment/Plan Hospital Course S: Patient patient had the D+ C and ovarian cystectomy. Performed yesterday. Has very minimal and scant vaginal bleeding. Seen by DIRECTOR OF USER EXPERIENCE team earlier today. Still having some pain complaints. O: VS - see below PE: Gen: Sitting in chair, answering questions Head: Atraumatic Eyes: Normal Conjunctiva ENT: Normal External Ears, Nose and Mouth. Neck: Supple Resp: Clear to auscultation bilaterally Cardio: Regular rate and rhythm, no murmurs Abd: Soft, non tender, non distended. Normal bowel sounds Ext: No lower extremity edema bilaterally Neuro: No focal deficits DATE OF OPERATION: 02/09/2019 PREOPERATIVE DIAGNOSES: 1. Severe anemia. 2. Menorrhagia. 3. Left ovarian cyst. POSTOPERATIVE DIAGNOSES: 1. Severe anemia. 2. Menorrhagia. 3. Left ovarian cyst. PROCEDURES: Dilation and curettage, hysteroscopy, endometrial ablation, operative laparoscopy, left ovarian cystectomy. Assessment and plan: 49-year-old female prior history of anemia, presenting with abnormal uterine bleeding x3 weeks, with hemoglobin 5.1 and left ovarian cyst. #Abnormal uterine bleeding: Again hemoglobin 5.1 on admission, received 3 units PRBC transfusion 2 days ago. Status post D&C procedure along with ovarian cystectomy postop day #1. -Continue pain control medications, follow-up postop recommendations from DIRECTOR OF USER EXPERIENCE team -Monitor CBC daily -given the fact that the hemoglobin is 7.7 today, will recheck H&H to make sure this is not lab error. #Left ovarian cyst: Found on imaging studies on admission -again status post ovarian cystectomy yesterday postop day #1 -Monitor, follow-up DIRECTOR OF USER EXPERIENCE recommendations. Result Diagram: 02/10/1930 02/10/19 0530 Results 24hrs Laboratory Tests Test 02/10/19 05:30 02/10/19 06:55 White Blood Count 6.8 Red Blood Count 3.28 L Hemoglobin 7.7 L Hematocrit 25.7 L Mean Corpuscular Volume 78.4 L Mean Corpuscular Hemoglobin 23.5 L Mean Corpuscular Hemoglobin Concent 30.0 L Red Cell Distribution Width 20.2 H Platelet Count 352 Mean Platelet Volume 9.6 Immature Granulocytes % 0.300 Neutrophils % 65.9 Lymphocytes % 22.4 Monocytes % 8.8 Eosinophils % 1.9 Basophils % 0.7 Nucleated Red Blood Cells % 0.3 H Immature Granulocytes # 0.020 Neutrophils # 4.5 Lymphocytes # 1.5 Monocytes # 0.6 Eosinophils # 0.1 Basophils # 0.1 Nucleated Red Blood Cells # 0.0 Sodium Level 141 Potassium Level 3.9 Chloride Level 112 H Carbon Dioxide Level 24 Anion Gap 5 Blood Urea Nitrogen 8 Creatinine 0.65 Est Glomerular Filtrat Rate mL/min > 60 Glucose Level 96 Calcium Level 8.3 L Lab Scanned Report BLOOD TRANSFUSION Exam/Review of Systems Exam Vitals Vital Signs Date Temp Pulse Resp B/P (MAP) Pulse Ox O2 O2 Flow FiO2 Time Delivery Rate 02/10/19 99.2 63 16 106/51 100 Room Air 07:32 (69) 02/09/19 8.0 13:18 Intake and Output 02/09/19 02/09/19 02/10/19 1515:00 23:00 07:00 IntakeIntake Total 2000 ml 420 ml 1077 ml OutputOutput Total 205 ml BalanceBalance 1795 ml 420 ml 1077 ml Results Results 24hrs Laboratory Tests Test 02/10/19 05:30 02/10/19 06:55 White Blood Count 6.8 Red Blood Count 3.28 L Hemoglobin 7.7 L Hematocrit 25.7 L Mean Corpuscular Volume 78.4 L Mean Corpuscular Hemoglobin 23.5 L Mean Corpuscular Hemoglobin Concent 30.0 L Red Cell Distribution Width 20.2 H Platelet Count 352 Mean Platelet Volume 9.6 Immature Granulocytes % 0.300 Neutrophils % 65.9 Lymphocytes % 22.4 Monocytes % 8.8 Eosinophils % 1.9 Basophils % 0.7 Nucleated Red Blood Cells % 0.3 H Immature Granulocytes # 0.020 Neutrophils # 4.5 Lymphocytes # 1.5 Monocytes # 0.6 Eosinophils # 0.1 Basophils # 0.1 Nucleated Red Blood Cells # 0.0 Sodium Level 141 Potassium Level 3.9 Chloride Level 112 H Carbon Dioxide Level 24 Anion Gap 5 Blood Urea Nitrogen 8 Creatinine 0.65 Est Glomerular Filtrat Rate mL/min > 60 Glucose Level 96 Calcium Level 8.3 L Lab Scanned Report BLOOD TRANSFUSION Medications Medication Current Medications IV Flush (NS 3 ml) 3 ml PER PROTOCOL IV ; Start 02/08/19 at 15:00 Ondansetron HCl (Zofran Inj) 4 mg Q6H PRN IV NAUSEA/VOMITING Last administered on 02/10/19at 11:42; Admin Dose 4 MG; Start 02/08/19 at 15:00 Acetaminophen (Tylenol Tab) 650 mg Q6H PRN PO .PAIN 1-3 OR TEMP Last administered on 02/10/19at 11:51; Admin Dose 650 MG; Start 02/08/19 at 15:00 Acetaminophen/ Hydrocodone Bitart ([place] (5/325)) 1 tab Q6H PRN PO .MOD PAIN 4- 6; Start 02/08/19 at 15:00 Morphine Sulfate (morphine) 2 mg Q4H PRN IV .SEVERE PAIN 7-10; Start 02/08/19 at 15:00 Docusate Sodium (Colace) 100 mg Q12H PRN PO .CONSTIPATION; Start 02/08/19 at 15:00 Magnesium Hydroxide (Milk Of Mag) 30 ml DAILY PRN PO .CONSTIPATION; Start 02/08/19 at 15:00 Lorazepam (Ativan) 0.5 mg Q6H PRN IV ANXIETY; Start 02/08/19 at 15:00 Albuterol/ Ipratropium (Duoneb) 3 ml Q4H RESP THERAPY PRN HHN SHORTNESS OF BREATH; Start 02/08/19 at 15:00 Hydralazine HCl (Apresoline) 10 mg Q6H PRN IV ELEVATED BLOOD PRESSURE; Start 02/08/19 at 15:00 Nitroglycerin (Nitroglycerin (Sl Tab) 0.4 Mg) 1 tab Q5M PRN SL ANGINA; Start 02/08/19 at 15:00 Oxycodone/ Acetaminophen (Percocet (5/ 325)) 2 tab Q4H PRN PO MODERATE PAIN LEVEL 4-6; Start 02/09/19 at 13:30 FARIHA AGUIAR February 10, 2019 12:20
[2019-02-10] MEDS: HYDROCODONE/APAP (5/325) TAB PO PRN (12:24)
[2019-02-10 14:26] VITALS: BP 115/57; PULSE 65; RESP 16
[2019-02-10 20:05] VITALS: BP 113/56; PULSE 70; RESP 18
[2019-02-11] MEDS: ACETAMINOPHEN 325 MG TAB PO PRN ×2 (01:27→14:21)
[2019-02-11 02:00] VITALS: BP 103/56; PULSE 66; RESP 18
[2019-02-11 07:37] VITALS: BP 108/52; PULSE 65; RESP 15
[2019-02-11] MEDS: HYDROCODONE/APAP (5/325) TAB PO PRN (09:32)
[2019-02-11] MEDS: ONDANSETRON 4 MG INJ IV PRN (13:19)
--- NOTE | 2019-02-11 14:03 | PDOCDIS ---
Discharge Instructions CONDITION [id number] Patient Condition: [id number] Stable HOME CARE INSTRUCTIONS: [id number] Diet Instructions: [id number] Low Fat /Cholesterol ACTIVITY: [id number] Activity Restrictions: [id number] Slowly Increase Activity Rest between Activity Avoid heavy lifting FOLLOW UP/APPOINTMENTS Follow-up Plan Please take your medications as prescribed, see your doctor in clinic in the next 1 week. FARIHA AGUIAR February 11, 2019 14:03
[2019-02-11] MEDS ORDERED: HYDR-3601 PO (14:06)
[2019-02-11] MEDS ORDERED: ONDA4TAB13 PO (14:06)
[2019-02-11 14:14] VITALS: BP 108/50; PULSE 67; RESP 16
--- NOTE | 2019-02-11 14:17 | DS ---
Date/Time of Note Date/Time of Note DATE: 02/11/19 TIME: 14:14 Discharge Summary Admission/Discharge Info Admit Date/Time February 08, 2019 at 14:17 Discharge Date/Time Discharge Diagnosis #Abnormal uterine bleeding: Again hemoglobin 5.1 on admission, improved after PRBC transfusion given during this admission. Status post D&C procedure along with ovarian cystectomy this admission as well. #Left ovarian cyst: Found on imaging studies on admission -again status post ovarian cystectomy this admission Patient Condition: Stable Procedures DATE OF OPERATION: 02/09/2019 PREOPERATIVE DIAGNOSES: 1. Severe anemia. 2. Menorrhagia. 3. Left ovarian cyst. POSTOPERATIVE DIAGNOSES: 1. Severe anemia. 2. Menorrhagia. 3. Left ovarian cyst. PROCEDURES: Dilation and curettage, hysteroscopy, endometrial ablation, operative laparoscopy, left ovarian cystectomy. Hx of Present Illness 49-year-old female with past medical history of anemia who presents to the ER for concerns of vaginal bleeding. Patient states this has been going on intermittently for the last 3 weeks. No apparent prior history of this. Patient states that the bleeding comes and goes, and states she uses 3-5 pads per day. Patient denies any blood clot passage. Also denies fevers, chills, nausea, vomiting, abdominal pain. Patient does report feeling weak. Patient states she has not taken her iron supplements for 2 weeks now given that she ran out of iron supplements. Patient does not have an TANK ERECTOR. When she came in today she was found hemoglobin 5.1 and PRBC transfusion has been ordered for the patient which is presently being given now. Patient was also seen by the TANK ERECTOR team because of the imaging studies also showing today a left ovarian cyst 7.3 centimeters, and they ordered some tumor markers which are still pending. Hospital Course Patient was admitted and received blood transfusion. Hemoglobin remained stable afterwards. She was monitored for any further vaginal bleeding which was minimal and scant afterwards. She was evaluated by the TANK ERECTOR team and again as mentioned above underwent: dilation and curettage, hysteroscopy, endometrial ablation, operative laparoscopy, left ovarian cystectomy. Patient tolerated the procedure well. She was given pain control medications and antinausea medications as well. Her labs remained stable. She was able to ambulate tolerated p.o. diet. If we get clearance from the TANK ERECTOR team today she will be discharged home today in improved condition. See below for full list of discharge medications. Home Meds Active Scripts Ondansetron Hcl* (Zofran*) 4 Mg Tab, 4 MG PO Q4H PRN for NAUSEA AND OR VOMITING, #20 TAB Prov:FARIHA AGUIAR S. 02/11/19 Hydrocodone Bit-Acetaminophen (Hydrocodone Bit-APAP) 5-325MG Tablet, 1 TAB PO Q6H PRN for .MOD PAIN 4-6, #20 TAB Prov:FARIHA AGUIAR S. 02/11/19 Follow-up Plan Please take your medications as prescribed, see your doctor in clinic in the next 1 week. Primary Care Provider Care Physician No Primary Time spent on discharge: > 30 minutes Pending Labs Laboratory Tests Test 02/11/19 06:50 White Blood Count 5.8 10^3/ul (4.8-10.8) Red Blood Count 3.66 10^6/ul (4.20-5.40) Hemoglobin 8.6 g/dl (12.0-16.0) Hematocrit 28.6 % (37.0-47.0) Mean Corpuscular Volume 78.1 fl (82.0-101.0) Mean Corpuscular Hemoglobin 23.5 pg (29.0-33.0) Mean Corpuscular Hemoglobin Concent 30.1 g/dl (32.0-37.0) Red Cell Distribution Width 21.2 % (11.5-14.5) Platelet Count 400 10^3/UL (140-415) Mean Platelet Volume 9.6 fl (7.4-10.4) Immature Granulocytes % 0.300 % (0.001-0.429) Neutrophils % 55.9 % (39.0-77.0) Lymphocytes % 31.2 % (15.0-51.0) Monocytes % 8.8 % (0.0-11.0) Eosinophils % 2.9 % (0.0-7.0) Basophils % 0.9 % (0.0-2.0) Nucleated Red Blood Cells % 0.0 /100WBC (0.0-0.0) Immature Granulocytes # 0.020 10^3/ul (0.0-0.031) Neutrophils # 3.3 10^3/ul (1.6-7.5) Lymphocytes # 1.8 10^3/ul (0.8-2.9) Monocytes # 0.5 10^3/ul (0.3-0.9) Eosinophils # 0.2 10^3/ul (0.0-0.5) Basophils # 0.1 10^3/ul (0.0-0.1) Nucleated Red Blood Cells # 0.0 10^3/ul (0.0-0.0) Sodium Level 140 mmol/L (135-144) Potassium Level 3.7 mmol/L (3.5-5.1) Chloride Level 107 mmol/L (97-110) Carbon Dioxide Level 27 mmol/L (21-31) Anion Gap 6 (5-13) Blood Urea Nitrogen 10 mg/dl (7-20) Creatinine 0.71 mg/dl (0.44-1.00) Est Glomerular Filtrat Rate mL/min > 60 mL/min (>60) Glucose Level 94 mg/dl (70-220) Calcium Level 8.8 mg/dl (8.4-10.2) FARIHA AGUIAR February 11, 2019 14:17
[2019-02-11 19:53] VITALS: BP 110/54; PULSE 71; RESP 18
--- NOTE | 2019-02-11 23:23 | QN ---
Documentation Comment RN called for discharge rewiew the note s.p LSC ovarian cystectomy and [facility]SC D&C and endometrial ablation patient was already relieased from [employer] servce on 02/10/19 by Albert who perform the surgery gave her instructions and f/u appoinment in his handwriting ANA BENITES MD February 11, 2019 23:23
[2019-02-12 01:57] VITALS: BP 107/56; PULSE 75; RESP 18
[2019-02-12] MEDS: ONDANSETRON 4 MG INJ IV PRN (06:40)
[2019-02-12 07:59] VITALS: BP 108/57; PULSE 73; RESP 16
[2019-02-12] MEDS: ACETAMINOPHEN 325 MG TAB PO PRN (10:29)
== END 2019-02-12 13:00 | disposition home or self-care (01) | DRG 742 ==
LOC: FTE 11:34 → TEL 14:17 → SUATTDRO 14:54 → 5EC 15:46
PROVIDERS: ADMIT Internal Medicine; ATTEND Hospitalist
PROC: 30233N1 Transfusion of Nonautologous Red Blood Cells into Peripheral Vein, Percutaneous Approach (ICD-10-PCS; 2019-02-08)
PROC: 0UB14ZZ Excision of Left Ovary, Percutaneous Endoscopic Approach (ICD-10-PCS; 2019-02-09)
PROC: 0UDB7ZZ Extraction of Endometrium, Via Natural or Artificial Opening (ICD-10-PCS; 2019-02-09)
PROC: 0U598ZZ Destruction of Uterus, Via Natural or Artificial Opening Endoscopic (ICD-10-PCS; principal; 2019-02-09 10:30)
DX: N93.9 Abnormal uterine and vaginal bleeding, unspecified (principal); D62 Acute posthemorrhagic anemia; N83.202 Unspecified ovarian cyst, left side; N88.8 Other specified noninflammatory disorders of cervix uteri
CPT/HCPCS: 36415; 36430; 76830; 76856; 80048; 80053; 80061; 81001; 82378; 83036; 83735; 84100; 84439; 84443; 84702; 85014; 85018; 85025; 85610; 85730; 86304; 86305; 86850; 86900; 86901; 86920; 88305; 88331; J0690; J1170; J1885; J2250; J2274; J2405; J2710; J2765; J2795; J7030; P9016